=== PATIENT | male | born 1980 | race Hispanic/Latino ===

== ENCOUNTER 2024-08-03 18:59 | Inpatient (IN) | payer SELFPAY ==
[~2024-08-03 18:59] MED LIST: Iopamidol-370 76% 500 ML MDV (1 ML CHARGE) ONE
[2024-08-03] MEDS ORDERED: Ondansetron ODT 4 MG TAB ONE (20:19)
[2024-08-03 20:55] LABS: #Basophils 0.03 10x3/uL (0.0-0.2); #Eosinophils Less than 0.03 10x3/uL (0.0-0.7); %Basophils 0.5 % (0.0-1.0); %Lymphocytes 8.3 % (21.0-51.0); %Monocytes 5.6 % (0.0-10.0); %Neutrophils 85.1 % (42.0-75.0); Hematocrit 46.8 % (42.0-52.0); Hemoglobin 16.8 g/dL (14.0-18.0); Mean Corpuscular HGB CONC 35.9 g/dL (32.0-36.0); Mean Corpuscular Hemoglobin 33.9 pg (27.0-31.0); Mean Corpuscular Volume 94.5 fL (78.0-98.0); Mean Platelet Volume 12.3 fL (7.4-10.4); Platelet Count 87 10x3/uL (130-400); RBC Distribution Width 12.3 % (11.5-14.5); Red Blood Cell (RBC) Count 4.95 mill/uL (4.70-6.10)
[2024-08-03 21:02] LABS: Bacteria/HPF None Seen HPF (None Seen); Bilirubin Negative (Negative); Blood, Urine Trace (Negative); CAUTI Indications for Culture Dysuria,urgency,freq; Clarity Clear (Clear); Glucose, Urine (Dipstick) Normal (Negative); Ketone, Urine 10 mg/dL (Negative); Leukocyte Negative Leu/uL (Negative); Nitrite Negative (Negative); Protein, Urine (Dipstick) 20 mg/dL (Neg-Trace); RBC/HPF 0-3 HPF (0-3); Specific Gravity, Urine 1.025 (1.002-1.036); Squamous Epithelial 0-3 HPF (0-3); WBC/HPF 0-3 HPF (0-3)
[2024-08-03 21:03] LABS: Urine Culture Reflex No No
[2024-08-03 21:11] LABS: Troponin I Less than 0.010 ng/mL (< 0.028)
[2024-08-03 21:12] LABS: Glucose 138 mg/dL (70-105)
[2024-08-03 21:13] LABS: ALT (SGPT) 120 U/L (8-55); AST (SGOT) 117 U/L (5-34); Albumin 4.4 g/dL (3.5-5.0); Alkaline Phosphatase 146 U/L (40-110); Anion Gap 18 mmol/L (10-20); BUN (Urea Nitrogen) 8 mg/dL (8.9-20.6); Calc. Creatinine Clearance 0 mL/min (70-130); Calcium 9.3 mg/dL (7.8-10.44); Carbon Dioxide 21 mmol/L (22-29); Chloride 104 mmol/L (98-107); Estimated GFR 117; Globulin 3.5 g/dL (2.4-3.5); Potassium 3.8 mmol/L (3.5-5.1); Protein, Total 7.9 g/dL (6.0-8.3); Sodium 139 mmol/L (136-145)
[2024-08-03 21:17] LABS: Lipase 1547 U/L (8-78)
[2024-08-03 21:19] LABS: Anisocytosis SLIGHT = 6-15 cells HPF (0-5); Platelet Adequacy Comment Platelets Decreased; Poikilocytosis SLIGHT = 6-15 cells HPF (0-5); Polychromasia SLIGHT = 2-3 cells HPF (0-2)
[2024-08-03] MEDS ORDERED: Morphine 4 MG/ML VIAL ONE (21:54)
[2024-08-03] MEDS ORDERED: Ondansetron ODT 4 MG TAB PO PRN ×2 (23:10→23:11)
[2024-08-03] MEDS ORDERED: Lorazepam 2 MG/ML VIAL IM PRN (23:10)
[2024-08-03] MEDS ORDERED: Acetaminophen 650 MG Suppository PR PRN (23:11)
[2024-08-03] MEDS ORDERED: Calcium Carbonate 500 MG ChewTAB PO PRN (23:11)
[2024-08-03] MEDS ORDERED: Ondansetron PF 4 MG/2 ML Vial IVP PRN (23:11)
[2024-08-03] MEDS ORDERED: Electrolyte Replacement Protocol 1 EACH FS SCH (23:15)
[2024-08-04] MEDS: Thiamine HCl 200 MG/2 ML VIAL SLOW IVP SCH (01:49)
[2024-08-04] MEDS: Acetaminophen 325 MG TAB PO SCH (01:49)
[2024-08-04] MEDS: Folic Acid 1 MG TAB PO SCH ×2 (01:50→20:23)
[2024-08-04] MEDS: Multivit, Therapeutic 1 TAB PO SCH ×2 (01:50→20:25)
[2024-08-04] MEDS: Lactated Ringer's 1,000 ML IV SCH (01:53)
[2024-08-04] MEDS: Morphine 2 MG/ML VIAL SLOW IVP PRN (01:53)
[2024-08-04 04:29] VITALS: BMI 26.4
[2024-08-04 05:05] LABS: #Basophils Less than 0.03 10x3/uL (0.0-0.2); #Eosinophils Less than 0.03 10x3/uL (0.0-0.7); %Basophils 0.2 % (0.0-1.0); %Lymphocytes 14.5 % (21.0-51.0); %Monocytes 8.2 % (0.0-10.0); %Neutrophils 76.9 % (42.0-75.0); Hematocrit 41.7 % (42.0-52.0); Hemoglobin 14.8 g/dL (14.0-18.0); Mean Corpuscular HGB CONC 35.5 g/dL (32.0-36.0); Mean Corpuscular Hemoglobin 33.7 pg (27.0-31.0); Platelet Count 63 10x3/uL (130-400); RBC Distribution Width 12.4 % (11.5-14.5); Red Blood Cell (RBC) Count 4.39 mill/uL (4.70-6.10)
[2024-08-04 05:14] LABS: ALT (SGPT) 88 U/L (8-55); AST (SGOT) 76 U/L (5-34); Albumin 3.7 g/dL (3.5-5.0); Alkaline Phosphatase 100 U/L (40-110); Anion Gap 13 mmol/L (10-20); BUN (Urea Nitrogen) 10 mg/dL (8.9-20.6); Bilirubin, Total 2.4 mg/dL (0.2-1.2); Calc. Creatinine Clearance 165 mL/min (70-130); Calcium 8.1 mg/dL (7.8-10.44); Carbon Dioxide 23 mmol/L (22-29); Chloride 105 mmol/L (98-107); Estimated GFR 116; Globulin 2.6 g/dL (2.4-3.5); Glucose 130 mg/dL (70-105); Potassium 4.1 mmol/L (3.5-5.1); Protein, Total 6.3 g/dL (6.0-8.3); Sodium 137 mmol/L (136-145)
[2024-08-04] MEDS: Famotidine 20 MG TAB PO SCH (09:25)
[2024-08-04] MEDS: Lorazepam 1 MG TAB PO PRN (09:28)
[2024-08-04] MEDS: Famotidine/PF 20 mg/2ml Vial SLOW IVP SCH (09:35)
[2024-08-04] MEDS: hydrALAZINE 20 MG/ML VIAL SLOW IVP PRN (16:29)
[2024-08-04] MEDS: ALPRAZolam 0.25 MG TAB PO PRN (16:29)
[2024-08-04] MEDS: Amlodipine 5 MG TAB PO SCH (20:24)
[2024-08-04] MEDS ORDERED: Lorazepam 1 MG TAB PO PRN (23:10)
[2024-08-05 05:45] LABS: #Basophils Less than 0.03 10x3/uL (0.0-0.2); #Eosinophils Less than 0.03 10x3/uL (0.0-0.7); %Basophils 0.3 % (0.0-1.0); %Eosinophils 0.1 % (0.0-10.0); %Monocytes 8.9 % (0.0-10.0); %Neutrophils 76.4 % (42.0-75.0); Hemoglobin 16.2 g/dL (14.0-18.0); Mean Corpuscular Volume 94.5 fL (78.0-98.0); Platelet Count 63 10x3/uL (130-400); RBC Distribution Width 12.2 % (11.5-14.5); Red Blood Cell (RBC) Count 4.76 mill/uL (4.70-6.10)
[2024-08-05 06:54] LABS: Lipase 515 U/L (8-78)
[2024-08-05 06:55] LABS: ALT (SGPT) 72 U/L (8-55); AST (SGOT) 60 U/L (5-34); Albumin 3.6 g/dL (3.5-5.0); Alkaline Phosphatase 105 U/L (40-110); Anion Gap 14 mmol/L (10-20); BUN (Urea Nitrogen) 8 mg/dL (8.9-20.6); Bilirubin, Total 3.8 mg/dL (0.2-1.2); Calc. Creatinine Clearance 180 mL/min (70-130); Calcium 8.5 mg/dL (7.8-10.44); Carbon Dioxide 20 mmol/L (22-29); Chloride 105 mmol/L (98-107); Estimated GFR 119; Glucose 93 mg/dL (70-105); Potassium 3.2 mmol/L (3.5-5.1); Protein, Total 6.6 g/dL (6.0-8.3); Sodium 136 mmol/L (136-145)
[2024-08-05] MEDS: Potassium Chloride 20 MEQ TAB PO SCH (08:46)
[2024-08-05] MEDS: Amlodipine 5 MG TAB PO SCH ×2 (08:46→15:40)
[2024-08-05 10:46] VITALS: TEMP 97.3
[2024-08-05 15:51] VITALS: BP 148/110
[2024-08-05] MEDS ORDERED: Lorazepam 1 MG TAB PO PRN (23:10)
[2024-08-06] MEDS ORDERED: Thiamine 100 MG TAB PO SCH (21:00)
[2024-08-06] MEDS ORDERED: Lorazepam 0.5 MG TAB PO PRN (23:10)
== END 2024-08-05 16:27 | disposition home or self-care (01) | DRG 440 ==
LOC: ERS 18:59 → SURG B 23:34
PROVIDERS: ADMIT Student in an Organized Health Care Education/Training Program; ATTEND Internal Medicine
DX: K85.20 Alcohol induced acute pancreatitis without necrosis or infection (principal); F10.10 Alcohol abuse, uncomplicated; E87.6 Hypokalemia; K74.60 Unspecified cirrhosis of liver; E11.9 Type 2 diabetes mellitus without complications; I10 Essential (primary) hypertension; Z88.0 Allergy status to penicillin; Z71.41 Alcohol abuse counseling and surveillance of alcoholic; D69.6 Thrombocytopenia, unspecified
CPT/HCPCS: 36415; 71045; 74177; 76705; 80053; 81001; 83690; 84484; 85025; 93005; J0360; J2272; J3411; J7120; Q0162; Q9967

== ENCOUNTER 2025-07-18 11:22 | Inpatient (IN) | payer MEDICAID, SELFPAY ==
[2025-07-18] MEDS ORDERED: Ondansetron PF 4 MG/2 ML Vial ONE (11:54)
[2025-07-18] MEDS ORDERED: Acetaminophen 500 MG TAB ONE (11:54)
[2025-07-18] MEDS ORDERED: Cefepime 2 GM VIAL ONE (11:55)
[2025-07-18] MEDS ORDERED: Vancomycin 1 GM/200 ML (FROZEN) BAG ONE ×2 (11:55→13:28)
[2025-07-18 12:09] LABS: Hematocrit 39.7 % (42.0-52.0); Hemoglobin 13.8 g/dL (14.0-18.0); Mean Corpuscular Hemoglobin 36.3 pg (27.0-31.0); Mean Corpuscular Volume 104.5 fL (78.0-98.0); Platelet Count 31 10x3/uL (130-400); Red Blood Cell (RBC) Count 3.80 mill/uL (4.70-6.10); White Blood Cell (WBC) Count 3.32 10x3/uL (4.8-10.8)
[2025-07-18 12:15] LABS: ALT (SGPT) 60 U/L (Less than 45); AST (SGOT) 154 U/L (11-34); Albumin 2.0 g/dL (3.1-4.5); Alkaline Phosphatase 120 U/L (40-110); Anion Gap 20 mmol/L (10-20); BUN (Urea Nitrogen) 10 mg/dL (8.9-20.6); Bilirubin, Total 23.5 mg/dL (0.3-1.2); Calc. Creatinine Clearance 0 mL/min (70-130); Calcium 8.5 mg/dL (7.8-10.44); Carbon Dioxide 18 mmol/L (22-29); Chloride 96 mmol/L (98-107); Globulin 4.9 g/dL (2.4-3.5); Glucose 97 mg/dL (70-105); Lipase 45 U/L (8-78); Magnesium 1.7 mg/dL (1.6-2.6); Potassium 3.5 mmol/L (3.5-5.1); Sodium 130 mmol/L (136-145)
[2025-07-18 12:17] LABS: INR-International Normal Ratio 2.7; PTT 47.2 sec (22.9-36.1); Prothrombin Time 28.9 sec (12.0-14.7)
[2025-07-18 12:33] LABS: Anisocytosis SLIGHT = 6-15 cells HPF (0-5); Burr Cells MODERATE= 6-15 cells HPF (0-1); Giant Platelets 0.9 % (0-5); Macrocytosis SLIGHT = 6-15 cells HPF (0-5); Platelet Adequacy Comment Significant Decrease; Poikilocytosis MODERATE=16-30 cells HPF (0-5); Polychromasia SLIGHT = 2-3 cells HPF (0-2); Reflex for Review?? YES; Smudge Cells 2.8 %; Toxic Granulation SLIGHT
[2025-07-18 14:16] LABS: RBC Count-Automated (BF) 3331 /cu.mm; WBC/Nucleated-Auto (BF) 6257 /cu.mm
[2025-07-18 14:58] LABS: BF Segmented Neutrophils 84 %; Cell Count Non Hematic 4 %
[2025-07-18] MEDS ORDERED: Ondansetron PF 4 MG/2 ML Vial IVP PRN (15:35)
[2025-07-18] MEDS ORDERED: Glucagon 1 MG/ML KIT IM PRN (15:39)
[2025-07-18] MEDS ORDERED: Dextrose 50% Abboject 50 ML SYRINGE SLOW IVP PRN (15:39)
[2025-07-18] MEDS ORDERED: PHOS-NAK 1 PKT PACK PO PRN ×2 (15:45→19:00)
[2025-07-18] MEDS ORDERED: Electrolyte Replacement Protocol 1 EACH FS SCH (15:45)
[2025-07-18] MEDS ORDERED: Vancomycin 1 GM in Premix 1 BAG IVPB SCH (16:00)
[2025-07-18 17:28] LABS: Acetaminophen Less than 10 mcg/mL (Less than 10); Bilirubin, Direct 11.4 mg/dL (0.1-0.3); Magnesium 1.6 mg/dL (1.6-2.6)
[2025-07-18 17:33] LABS: INR-International Normal Ratio 3.9; Prothrombin Time 38.4 sec (12.0-14.7)
[2025-07-18 17:34] LABS: PTT 59.6 sec (22.9-36.1)
[2025-07-18 18:13] VITALS: BMI 24.8
[2025-07-18] MEDS ORDERED: Pharmacy to Dose: VANC IVPB PRN (18:33)
[2025-07-18] MEDS ORDERED: Potassium Chloride 20 MEQ in Premix 1 BAG IVPB PRN (19:00)
[2025-07-18] MEDS ORDERED: Magnesium 2 GM/50 ML(in water) 2 GM in Premix 1 BAG IVPB PRN (19:00)
[2025-07-18] MEDS: Magnesium 2 GM/50 ML(in water) 2 GM in Premix 1 BAG IVPB PRN (19:39)
[2025-07-18] MEDS: Electrolyte Replacement Protocol 1 EACH FS ONE (20:30)
[2025-07-18] MEDS: Albumin 25% 25 GM (100 mL) BOT IVPB SCH (20:31)
[2025-07-18] MEDS: Folic Acid 1 MG TAB PO SCH (20:32)
[2025-07-18] MEDS: Multivit, Therapeutic 1 TAB PO SCH (20:33)
[2025-07-18 20:38] LABS: Hematocrit 29.8 % (42.0-52.0); Hemoglobin 10.3 g/dL (14.0-18.0); Mean Corpuscular Hemoglobin 36.1 pg (27.0-31.0); Mean Corpuscular Volume 104.6 fL (78.0-98.0); Platelet Count 15 10x3/uL (130-400); Red Blood Cell (RBC) Count 2.85 mill/uL (4.70-6.10); White Blood Cell (WBC) Count 3.25 10x3/uL (4.8-10.8)
[2025-07-18] MEDS ORDERED: Heparin 5,000 UNITS/ML VIAL SC SCH (21:00)
[2025-07-18] MEDS: VANCOMYCIN 1.75 GM/350 ML Premix BAG IVPB SCH (21:04)
[2025-07-19 00:38] LABS: #Basophils Less than 0.03 10x3/uL (0.0-0.2); #Eosinophils Less than 0.03 10x3/uL (0.0-0.7); #Monocytes 0.29 10x3/uL (0.11-0.59); #Neutrophils 2.90 10x3/uL (1.40-6.50); %Basophils 0.3 % (0.0-1.0); %Eosinophils 0.3 % (0.0-10.0); %Lymphocytes 14.6 % (21.0-51.0); %Monocytes 7.7 % (0.0-10.0); %Neutrophils 76.8 % (42.0-75.0); Hematocrit 28.9 % (42.0-52.0); Hemoglobin 9.7 g/dL (14.0-18.0); Mean Corpuscular Hemoglobin 36.5 pg (27.0-31.0); Mean Corpuscular Volume 108.6 fL (78.0-98.0); Platelet Count 14 10x3/uL (130-400); Red Blood Cell (RBC) Count 2.66 mill/uL (4.70-6.10); White Blood Cell (WBC) Count 3.77 10x3/uL (4.8-10.8)
[2025-07-19 01:06] LABS: Anisocytosis SLIGHT = 6-15 cells HPF (0-5); Macrocytosis SLIGHT = 6-15 cells HPF (0-5); Platelet Adequacy Comment Platelets Decreased; Polychromasia SLIGHT = 2-3 cells HPF (0-2); Target Cells SLIGHT = 2-5 cells HPF (0-1)
[2025-07-19 06:55] LABS: Hematocrit 32.6 % (42.0-52.0); Hemoglobin 11.0 g/dL (14.0-18.0); Mean Corpuscular Hemoglobin 35.9 pg (27.0-31.0); Mean Corpuscular Volume 106.5 fL (78.0-98.0); Platelet Count 28 10x3/uL (130-400); Red Blood Cell (RBC) Count 3.06 mill/uL (4.70-6.10); White Blood Cell (WBC) Count 3.99 10x3/uL (4.8-10.8)
[2025-07-19 07:04] LABS: INR-International Normal Ratio 3.4; PTT 56.6 sec (22.9-36.1); Prothrombin Time 34.7 sec (12.0-14.7)
[2025-07-19 07:05] LABS: Vancomycin, Random 22.3 ug/mL (See Comment)
[2025-07-19 07:06] LABS: ALT (SGPT) 44 U/L (Less than 45); AST (SGOT) 89 U/L (11-34); Albumin 2.6 g/dL (3.1-4.5); Alkaline Phosphatase 50 U/L (40-110); Anion Gap 12 mmol/L (10-20); BUN (Urea Nitrogen) 12 mg/dL (8.9-20.6); Bilirubin, Total 20.0 mg/dL (0.3-1.2); Calc. Creatinine Clearance 204 mL/min (70-130); Calcium 8.4 mg/dL (7.8-10.44); Carbon Dioxide 23 mmol/L (22-29); Chloride 101 mmol/L (98-107); Globulin 3.1 g/dL (2.4-3.5); Glucose 91 mg/dL (70-105); Magnesium 2.4 mg/dL (1.6-2.6); Potassium 3.2 mmol/L (3.5-5.1); Sodium 133 mmol/L (136-145)
[2025-07-19 07:49] LABS: Burr Cells MARKED = >16 cells HPF (0-1); Macrocytosis SLIGHT = 6-15 cells HPF (0-5); Platelet Adequacy Comment Significant Decrease; Poikilocytosis MARKED = >30 cells HPF (0-5); Polychromasia SLIGHT = 2-3 cells HPF (0-2); Smudge Cells 10.7 %; Target Cells MODERATE= 6-15 cells HPF (0-1)
[2025-07-19] MEDS: Pantoprazole 40 MG VIAL IVP SCH (08:59)
[2025-07-19] MEDS: PNEUMOC 20-VAL CONJ-DIP CRM/PF 0.5 ML SYRINGE IM ONE (09:00)
[2025-07-19] MEDS ORDERED: Folic Acid 1 MG TAB PO SCH (09:00)
[2025-07-19] MEDS: FLU (Fluarix Triv) 25-26 (6MOS UP)/PF 45 MCG/0.5 ML Syringe IM ONE (09:00)
[2025-07-19] MEDS ORDERED: Multivit, Therapeutic 1 TAB PO SCH (09:00)
[2025-07-19 09:50] LABS: Osmolality, Serum 278 mOsm/kg (275-295)
[2025-07-19 10:00] LABS: Cocaine Metabolite Screen Negative (Negative); THC/Cannabinoid Screen Negative (Negative); Tricyclic Screen Negative (Negative)
[2025-07-19 10:41] LABS: Osmolality, Urine 440 mOsm/kg (50-1200)
[2025-07-19 10:55] LABS: Potassium, Urine 45.9 mmol/L; Sodium, Urine Less than 20 mmol/L (Not Available)
[2025-07-19 16:37] LABS: Potassium 3.5 mmol/L (3.5-5.1)
[2025-07-19] MEDS: Melatonin 3 MG TAB PO PRN (22:30)
[2025-07-19] MEDS: Vancomycin HCl 750 MG in Sodium Chloride 0.9% 250 ML 250 ML IVPB SCH (23:00)
[2025-07-20 00:36] LABS: Campy jejuni + coli by PCR Negative (Negative); STEC Shiga Toxin 1+2 Negative (Negative); Salmonella spp. by PCR Negative (Negative); Shigella spp + EIEC by PCR Negative (Negative)
[2025-07-20 04:00] LABS: Hematocrit 28.9 % (42.0-52.0); Hemoglobin 10.3 g/dL (14.0-18.0); Mean Corpuscular Hemoglobin 36.4 pg (27.0-31.0); Mean Corpuscular Volume 102.1 fL (78.0-98.0); Platelet Count 24 10x3/uL (130-400); Red Blood Cell (RBC) Count 2.83 mill/uL (4.70-6.10); White Blood Cell (WBC) Count 3.78 10x3/uL (4.8-10.8)
[2025-07-20 04:04] LABS: INR-International Normal Ratio 3.3; Prothrombin Time 34.1 sec (12.0-14.7)
[2025-07-20 04:08] LABS: Vancomycin, Random 17.1 ug/mL (See Comment)
[2025-07-20 04:16] LABS: ALT (SGPT) 44 U/L (Less than 45); AST (SGOT) 96 U/L (11-34); Albumin 2.6 g/dL (3.1-4.5); Alkaline Phosphatase 56 U/L (40-110); Anion Gap 10 mmol/L (10-20); BUN (Urea Nitrogen) 13 mg/dL (8.9-20.6); Bilirubin, Total 21.3 mg/dL (0.3-1.2); Calc. Creatinine Clearance 207 mL/min (70-130); Calcium 8.1 mg/dL (7.8-10.44); Carbon Dioxide 23 mmol/L (22-29); Chloride 104 mmol/L (98-107); Globulin 2.3 g/dL (2.4-3.5); Glucose 80 mg/dL (70-105); Potassium 3.2 mmol/L (3.5-5.1); Sodium 134 mmol/L (136-145)
[2025-07-20 04:39] LABS: Burr Cells SLIGHT = 2-5 cells HPF (0-1); Platelet Adequacy Comment Platelets Decreased; Smudge Cells 7.2 %; Target Cells SLIGHT = 2-5 cells HPF (0-1)
[2025-07-20 12:33] LABS: Potassium 3.6 mmol/L (3.5-5.1)
[2025-07-21 05:48] LABS: ALT (SGPT) 52 U/L (Less than 45); AST (SGOT) 111 U/L (11-34); Albumin 2.2 g/dL (3.1-4.5); Alkaline Phosphatase 78 U/L (40-110); Anion Gap 9 mmol/L (10-20); BUN (Urea Nitrogen) 16 mg/dL (8.9-20.6); Bilirubin, Total 22.9 mg/dL (0.3-1.2); Calc. Creatinine Clearance 268 mL/min (70-130); Calcium 7.9 mg/dL (7.8-10.44); Carbon Dioxide 21 mmol/L (22-29); Chloride 109 mmol/L (98-107); Globulin 2.3 g/dL (2.4-3.5); Glucose 78 mg/dL (70-105); Magnesium 2.2 mg/dL (1.6-2.6); Potassium 3.4 mmol/L (3.5-5.1); Sodium 136 mmol/L (136-145)
[2025-07-21 06:02] LABS: Hematocrit 29.6 % (42.0-52.0); Hemoglobin 10.3 g/dL (14.0-18.0); Mean Corpuscular Hemoglobin 36.4 pg (27.0-31.0); Mean Corpuscular Volume 104.6 fL (78.0-98.0); Platelet Count 26 10x3/uL (130-400); Red Blood Cell (RBC) Count 2.83 mill/uL (4.70-6.10); White Blood Cell (WBC) Count 3.28 10x3/uL (4.8-10.8)
[2025-07-21] MEDS: Potassium Chloride 20 MEQ in Premix 1 BAG IVPB PRN (06:55)
[2025-07-21 07:13] LABS: Anisocytosis SLIGHT = 6-15 cells HPF (0-5); Macrocytosis SLIGHT = 6-15 cells HPF (0-5); Nucleated RBC (Manual Ct) 1 % (0); Platelet Adequacy Comment Platelets Decreased; Smudge Cells 22.6 %
[2025-07-21] MEDS: Potassium Phosphate 22 MMOL in Sodium Chloride 0.9% 250 ML 250 ML IVPB SCH (09:31)
[2025-07-21] MEDS: PHOS-NAK 1 PKT PACK PO SCH (10:57)
[2025-07-21] MEDS: Thiamine 100 MG TAB PO SCH (11:02)
[2025-07-21 14:54] LABS: Potassium 3.9 mmol/L (3.5-5.1)
[2025-07-21] MEDS ORDERED: Lactulose 20 GM (30 mL) UDCUP PR SCH ×2 (16:14→21:00)
[2025-07-21] MEDS ORDERED: Lactulose 10 GM/15 ML Oral Solution PR SCH ×3 (16:30→21:00)
[2025-07-21] MEDS: cloNIDine 0.2mg/24 Hour PATCH TD SCH (16:56)
[2025-07-21] MEDS: Lactulose 20 GM (30 mL) UDCUP PO SCH ×2 (17:05→21:08)
[2025-07-21] MEDS: Lactulose 20 GM (30 mL) UDCUP PER TUBE SCH (17:40)
[2025-07-21] MEDS ORDERED: Lactulose 20 GM (30 mL) UDCUP PER TUBE SCH (21:00)
[2025-07-22 07:03] LABS: Hematocrit 31.4 % (42.0-52.0); Hemoglobin 10.9 g/dL (14.0-18.0); Mean Corpuscular Hemoglobin 36.3 pg (27.0-31.0); Mean Corpuscular Volume 104.7 fL (78.0-98.0); Platelet Count 30 10x3/uL (130-400); Red Blood Cell (RBC) Count 3.00 mill/uL (4.70-6.10); White Blood Cell (WBC) Count 2.98 10x3/uL (4.8-10.8)
[2025-07-22 07:15] LABS: ALT (SGPT) 69 U/L (Less than 45); AST (SGOT) 140 U/L (11-34); Albumin 2.3 g/dL (3.1-4.5); Alkaline Phosphatase 89 U/L (40-110); Anion Gap 11 mmol/L (10-20); BUN (Urea Nitrogen) 17 mg/dL (8.9-20.6); Bilirubin, Total 24.4 mg/dL (0.3-1.2); Calc. Creatinine Clearance 300 mL/min (70-130); Calcium 8.2 mg/dL (7.8-10.44); Carbon Dioxide 21 mmol/L (22-29); Chloride 112 mmol/L (98-107); Globulin 2.7 g/dL (2.4-3.5); Glucose 81 mg/dL (70-105); Magnesium 2.1 mg/dL (1.6-2.6); Potassium 3.9 mmol/L (3.5-5.1); Sodium 140 mmol/L (136-145)
[2025-07-22 07:32] LABS: Anisocytosis MARKED = >30 cells HPF (0-5); Burr Cells SLIGHT = 2-5 cells HPF (0-1); Macrocytosis MARKED = >30 cells HPF (0-5); Platelet Adequacy Comment Significant Decrease; Polychromasia SLIGHT = 2-3 cells HPF (0-2); Target Cells SLIGHT = 2-5 cells HPF (0-1)
[2025-07-22 08:07] LABS: Plasma Cells 0 % (0-0)
[2025-07-23 04:36] LABS: Hematocrit 32.4 % (42.0-52.0); Hemoglobin 11.1 g/dL (14.0-18.0); Mean Corpuscular Hemoglobin 36.3 pg (27.0-31.0); Mean Corpuscular Volume 105.9 fL (78.0-98.0); Platelet Count 33 10x3/uL (130-400); Red Blood Cell (RBC) Count 3.06 mill/uL (4.70-6.10); White Blood Cell (WBC) Count 2.79 10x3/uL (4.8-10.8)
[2025-07-23 04:49] LABS: INR-International Normal Ratio 2.8; Prothrombin Time 29.8 sec (12.0-14.7)
[2025-07-23 04:58] LABS: ALT (SGPT) 73 U/L (Less than 45); AST (SGOT) 135 U/L (11-34); Albumin 2.3 g/dL (3.1-4.5); Alkaline Phosphatase 86 U/L (40-110); Anion Gap 15 mmol/L (10-20); BUN (Urea Nitrogen) 16 mg/dL (8.9-20.6); Calc. Creatinine Clearance 342 mL/min (70-130); Calcium 8.2 mg/dL (7.8-10.44); Carbon Dioxide 19 mmol/L (22-29); Chloride 115 mmol/L (98-107); Globulin 2.8 g/dL (2.4-3.5); Glucose 94 mg/dL (70-105); Potassium 3.6 mmol/L (3.5-5.1); Sodium 145 mmol/L (136-145)
[2025-07-23 05:09] LABS: Bilirubin, Total 24.3 mg/dL (0.3-1.2)
[2025-07-23 05:59] LABS: Anisocytosis SLIGHT = 6-15 cells HPF (0-5); Macrocytosis SLIGHT = 6-15 cells HPF (0-5); Platelet Adequacy Comment Significant Decrease; Polychromasia SLIGHT = 2-3 cells HPF (0-2); Smudge Cells 14.1 %
[2025-07-23] MEDS: Furosemide 40 MG (4 mL) VIAL SLOW IVP SCH (17:10)
[2025-07-24 03:55] LABS: #Basophils 0.04 10x3/uL (0.0-0.2); #Eosinophils 0.06 10x3/uL (0.0-0.7); #Monocytes 0.50 10x3/uL (0.11-0.59); #Neutrophils 2.25 10x3/uL (1.40-6.50); %Basophils 1.1 % (0.0-1.0); %Eosinophils 1.7 % (0.0-10.0); %Lymphocytes 16.7 % (21.0-51.0); %Monocytes 14.2 % (0.0-10.0); %Neutrophils 63.8 % (42.0-75.0); Hematocrit 32.8 % (42.0-52.0); Hemoglobin 11.3 g/dL (14.0-18.0); Mean Corpuscular Hemoglobin 36.3 pg (27.0-31.0); Mean Corpuscular Volume 105.5 fL (78.0-98.0); Platelet Count 36 10x3/uL (130-400); Red Blood Cell (RBC) Count 3.11 mill/uL (4.70-6.10); White Blood Cell (WBC) Count 3.53 10x3/uL (4.8-10.8)
[2025-07-24 04:33] LABS: ALT (SGPT) 78 U/L (Less than 45); AST (SGOT) 141 U/L (11-34); Albumin 2.3 g/dL (3.1-4.5); Alkaline Phosphatase 93 U/L (40-110); Anion Gap 12 mmol/L (10-20); BUN (Urea Nitrogen) 11 mg/dL (8.9-20.6); Calc. Creatinine Clearance 291 mL/min (70-130); Calcium 8.3 mg/dL (7.8-10.44); Carbon Dioxide 21 mmol/L (22-29); Chloride 115 mmol/L (98-107); Globulin 3.2 g/dL (2.4-3.5); Glucose 109 mg/dL (70-105); Potassium 3.3 mmol/L (3.5-5.1); Sodium 145 mmol/L (136-145)
[2025-07-24 04:36] LABS: Bilirubin, Total 25.8 mg/dL (0.3-1.2)
[2025-07-24] MEDS: Furosemide 40 MG (4 mL) VIAL SLOW IVP SCH (06:35)
[2025-07-24 16:51] LABS: Potassium 3.3 mmol/L (3.5-5.1)
[2025-07-24 22:12] LABS: Potassium 3.8 mmol/L (3.5-5.1)
[2025-07-25 04:27] LABS: #Basophils 0.03 10x3/uL (0.0-0.2); #Eosinophils 0.03 10x3/uL (0.0-0.7); #Monocytes 0.46 10x3/uL (0.11-0.59); #Neutrophils 3.45 10x3/uL (1.40-6.50); %Basophils 0.6 % (0.0-1.0); %Eosinophils 0.6 % (0.0-10.0); %Lymphocytes 13.1 % (21.0-51.0); %Monocytes 9.9 % (0.0-10.0); %Neutrophils 74.3 % (42.0-75.0); Hematocrit 34.2 % (42.0-52.0); Hemoglobin 11.6 g/dL (14.0-18.0); Mean Corpuscular Hemoglobin 36.0 pg (27.0-31.0); Mean Corpuscular Volume 106.2 fL (78.0-98.0); Platelet Count 41 10x3/uL (130-400); Red Blood Cell (RBC) Count 3.22 mill/uL (4.70-6.10); White Blood Cell (WBC) Count 4.65 10x3/uL (4.8-10.8)
[2025-07-25 04:33] LABS: Bilirubin, Total 27.0 mg/dL (0.3-1.2)
[2025-07-25 04:41] LABS: ALT (SGPT) 84 U/L (Less than 45); AST (SGOT) 136 U/L (11-34); Albumin 2.4 g/dL (3.1-4.5); Alkaline Phosphatase 97 U/L (40-110); Anion Gap 13 mmol/L (10-20); BUN (Urea Nitrogen) 9 mg/dL (8.9-20.6); Calc. Creatinine Clearance 322 mL/min (70-130); Calcium 8.6 mg/dL (7.8-10.44); Carbon Dioxide 23 mmol/L (22-29); Chloride 113 mmol/L (98-107); Globulin 3.7 g/dL (2.4-3.5); Glucose 102 mg/dL (70-105); Potassium 3.4 mmol/L (3.5-5.1); Sodium 146 mmol/L (136-145)
[2025-07-25] MEDS ORDERED: Sodium Bicarbonate 2.5 MEQ/5 ML SDV ONE (10:03)
[2025-07-25] MEDS ORDERED: Lidocaine 1% w/Epinephrine 1:100K 20 ML VIAL ONE (10:03)
[2025-07-25] MEDS ORDERED: Lidocaine 1% PF 5 ML VIAL ONE (10:03)
[2025-07-25 10:50] LABS: Potassium 3.2 mmol/L (3.5-5.1)
[2025-07-25 16:22] VITALS: BMI 25.2
[2025-07-25 16:55] LABS: RBC Count-Automated (BF) 198 /cu.mm; WBC/Nucleated-Auto (BF) 180 /cu.mm
[2025-07-25 17:28] LABS: BF Segmented Neutrophils 19 %; Cell Count Non Hematic 25 %
[2025-07-25 19:03] LABS: Potassium 3.3 mmol/L (3.5-5.1)
[2025-07-25 23:57] LABS: Potassium 3.3 mmol/L (3.5-5.1)
[2025-07-26 05:22] LABS: #Basophils 0.03 10x3/uL (0.0-0.2); #Eosinophils 0.04 10x3/uL (0.0-0.7); #Monocytes 0.47 10x3/uL (0.11-0.59); #Neutrophils 3.77 10x3/uL (1.40-6.50); %Basophils 0.6 % (0.0-1.0); %Eosinophils 0.8 % (0.0-10.0); %Lymphocytes 14.6 % (21.0-51.0); %Monocytes 9.2 % (0.0-10.0); %Neutrophils 73.6 % (42.0-75.0); Hematocrit 33.6 % (42.0-52.0); Hemoglobin 11.8 g/dL (14.0-18.0); Mean Corpuscular Hemoglobin 36.9 pg (27.0-31.0); Mean Corpuscular Volume 105.0 fL (78.0-98.0); Platelet Count 39 10x3/uL (130-400); Red Blood Cell (RBC) Count 3.20 mill/uL (4.70-6.10); White Blood Cell (WBC) Count 5.12 10x3/uL (4.8-10.8)
[2025-07-26 05:44] LABS: Bilirubin, Total 26.7 mg/dL (0.3-1.2)
[2025-07-26 05:45] LABS: ALT (SGPT) 82 U/L (Less than 45); AST (SGOT) 135 U/L (11-34); Albumin 2.4 g/dL (3.1-4.5); Alkaline Phosphatase 101 U/L (40-110); Anion Gap 13 mmol/L (10-20); BUN (Urea Nitrogen) 10 mg/dL (8.9-20.6); Calc. Creatinine Clearance 256 mL/min (70-130); Calcium 8.6 mg/dL (7.8-10.44); Carbon Dioxide 24 mmol/L (22-29); Chloride 114 mmol/L (98-107); Globulin 3.7 g/dL (2.4-3.5); Glucose 116 mg/dL (70-105); Potassium 3.3 mmol/L (3.5-5.1); Sodium 148 mmol/L (136-145)
[2025-07-26 14:25] LABS: Potassium 3.5 mmol/L (3.5-5.1)
[2025-07-26] MEDS: Albumin 25% 25 GM (100 mL) BOT IVPB SCH (17:44)
[2025-07-26] MEDS: Lactulose 20 GM (30 mL) UDCUP PO SCH (17:44)
[2025-07-26] MEDS: Ciprofloxacin 500 MG TAB PO SCH (20:01)
[2025-07-27 04:09] LABS: INR-International Normal Ratio 2.9; Prothrombin Time 30.4 sec (12.0-14.7)
[2025-07-27 04:10] LABS: PTT 55.0 sec (22.9-36.1)
[2025-07-27 04:16] LABS: ALT (SGPT) 77 U/L (Less than 45); AST (SGOT) 136 U/L (11-34); Albumin 2.7 g/dL (3.1-4.5); Alkaline Phosphatase 117 U/L (40-110); Bilirubin, Total 24.5 mg/dL (0.3-1.2)
[2025-07-27 04:28] LABS: Bilirubin, Direct 16.8 mg/dL (0.1-0.3)
[2025-07-27 04:38] LABS: Anion Gap 13 mmol/L (10-20); BUN (Urea Nitrogen) 11 mg/dL (8.9-20.6); Calc. Creatinine Clearance 245 mL/min (70-130); Calcium 8.4 mg/dL (7.8-10.44); Carbon Dioxide 24 mmol/L (22-29); Chloride 109 mmol/L (98-107); Glucose 91 mg/dL (70-105); Potassium 2.9 mmol/L (3.5-5.1); Sodium 143 mmol/L (136-145)
[2025-07-27] MEDS: Furosemide 40 MG TAB PO SCH (08:57)
[2025-07-27] MEDS: Potassium Chloride 20 MEQ in Premix 1 BAG IVPB SCH (08:58)
[2025-07-27] MEDS: Potassium Bicarbonate/Cit Ac 20 MEQ TAB PO SCH (13:28)
[2025-07-27] MEDS ORDERED: Magnesium Sulfate In Water 4 GM in Premix 1 BAG IVPB PRN (16:00)
[2025-07-27] MEDS ORDERED: Potassium Chloride 20 MEQ in Premix 1 BAG IVPB PRN (16:00)
[2025-07-27 18:51] LABS: Potassium 3.6 mmol/L (3.5-5.1)
[2025-07-28 04:48] LABS: INR-International Normal Ratio 3.3; Prothrombin Time 33.4 sec (12.0-14.7)
[2025-07-28 04:49] LABS: PTT 57.1 sec (22.9-36.1)
[2025-07-28 04:50] LABS: ALT (SGPT) 81 U/L (Less than 45); AST (SGOT) 158 U/L (11-34); Albumin 2.5 g/dL (3.1-4.5); Alkaline Phosphatase 97 U/L (40-110); Anion Gap 10 mmol/L (10-20); BUN (Urea Nitrogen) 11 mg/dL (8.9-20.6); Bilirubin, Direct 13.6 mg/dL (0.1-0.3); Bilirubin, Total 22.7 mg/dL (0.3-1.2); Calc. Creatinine Clearance 245 mL/min (70-130); Calcium 8.0 mg/dL (7.8-10.44); Carbon Dioxide 24 mmol/L (22-29); Chloride 105 mmol/L (98-107); Glucose 83 mg/dL (70-105); Potassium 3.4 mmol/L (3.5-5.1); Sodium 136 mmol/L (136-145)
[2025-07-28] MEDS: PHOS-NAK 1 PKT PACK PO PRN (05:38)
[2025-07-28 09:54] LABS: Potassium 3.7 mmol/L (3.5-5.1)
[2025-07-28] MEDS: Potassium Bicarbonate/Cit Ac 20 MEQ TAB PO SCH (09:54)
[2025-07-29 04:18] LABS: #Basophils 0.03 10x3/uL (0.0-0.2); #Eosinophils 0.05 10x3/uL (0.0-0.7); #Monocytes 0.62 10x3/uL (0.11-0.59); #Neutrophils 5.85 10x3/uL (1.40-6.50); %Basophils 0.4 % (0.0-1.0); %Eosinophils 0.6 % (0.0-10.0); %Lymphocytes 14.5 % (21.0-51.0); %Monocytes 8.0 % (0.0-10.0); %Neutrophils 75.9 % (42.0-75.0); Hematocrit 29.3 % (42.0-52.0); Hemoglobin 10.3 g/dL (14.0-18.0); Mean Corpuscular Hemoglobin 36.5 pg (27.0-31.0); Mean Corpuscular Volume 103.9 fL (78.0-98.0); Platelet Count 40 10x3/uL (130-400); Red Blood Cell (RBC) Count 2.82 mill/uL (4.70-6.10); White Blood Cell (WBC) Count 7.72 10x3/uL (4.8-10.8)
[2025-07-29] MEDS: Guaifenesin DM 100-10/5 ML UDCUP PO PRN (04:23)
[2025-07-29 04:26] LABS: INR-International Normal Ratio 2.9; PTT 50.8 sec (22.9-36.1); Prothrombin Time 30.8 sec (12.0-14.7)
[2025-07-29 04:47] LABS: ALT (SGPT) 100 U/L (Less than 45); AST (SGOT) 199 U/L (11-34); Albumin 2.4 g/dL (3.1-4.5); Alkaline Phosphatase 109 U/L (40-110); Anion Gap 14 mmol/L (10-20); BUN (Urea Nitrogen) 9 mg/dL (8.9-20.6); Bilirubin, Direct 14.9 mg/dL (0.1-0.3); Bilirubin, Total 24.6 mg/dL (0.3-1.2); Calc. Creatinine Clearance 225 mL/min (70-130); Calcium 8.0 mg/dL (7.8-10.44); Carbon Dioxide 20 mmol/L (22-29); Chloride 105 mmol/L (98-107); Glucose 81 mg/dL (70-105); Potassium 3.7 mmol/L (3.5-5.1); Sodium 135 mmol/L (136-145)
[2025-07-30 05:07] LABS: #Basophils 0.03 10x3/uL (0.0-0.2); #Eosinophils 0.08 10x3/uL (0.0-0.7); #Monocytes 0.78 10x3/uL (0.11-0.59); #Neutrophils 5.19 10x3/uL (1.40-6.50); %Basophils 0.4 % (0.0-1.0); %Eosinophils 1.1 % (0.0-10.0); %Lymphocytes 14.7 % (21.0-51.0); %Monocytes 10.8 % (0.0-10.0); %Neutrophils 72.3 % (42.0-75.0); Hematocrit 29.3 % (42.0-52.0); Hemoglobin 10.5 g/dL (14.0-18.0); Mean Corpuscular Hemoglobin 37.0 pg (27.0-31.0); Mean Corpuscular Volume 103.2 fL (78.0-98.0); Platelet Count 41 10x3/uL (130-400); Red Blood Cell (RBC) Count 2.84 mill/uL (4.70-6.10); White Blood Cell (WBC) Count 7.19 10x3/uL (4.8-10.8)
[2025-07-30 05:15] LABS: Anion Gap 14 mmol/L (10-20); BUN (Urea Nitrogen) 8 mg/dL (8.9-20.6); Calc. Creatinine Clearance 235 mL/min (70-130); Calcium 7.7 mg/dL (7.8-10.44); Carbon Dioxide 20 mmol/L (22-29); Chloride 103 mmol/L (98-107); Glucose 90 mg/dL (70-105); Potassium 3.7 mmol/L (3.5-5.1); Sodium 133 mmol/L (136-145)
[2025-07-30 05:24] LABS: INR-International Normal Ratio 3.1; PTT 58.9 sec (22.9-36.1); Prothrombin Time 32.3 sec (12.0-14.7)
[2025-07-30] MEDS: Lactulose 20 GM (30 mL) UDCUP PO SCH (08:30)
[2025-07-30 17:18] VITALS: BP 108/66; TEMP 97.9
== END 2025-07-30 19:22 | disposition home or self-care (01) | DRG 871 ==
LOC: ERS 11:22 → IMCU/EMU 15:30 → 2SE 07-19 15:05 → PCU 07-19 21:45
PROVIDERS: ADMIT Family Medicine; ATTEND Hospitalist
PROC: 3E03329 Introduction of Other Anti-infective into Peripheral Vein, Percutaneous Approach (ICD-10-PCS; principal; 2025-07-18)
PROC: HZ2ZZZZ Detoxification Services for Substance Abuse Treatment (ICD-10-PCS; 2025-07-18)
PROC: 0W9G3ZZ Drainage of Peritoneal Cavity, Percutaneous Approach (ICD-10-PCS; 2025-07-18)
PROC: 6A550Z2 Pheresis of Platelets, Single (ICD-10-PCS; 2025-07-19)
PROC: 0T9B70Z Drainage of Bladder with Drainage Device, Via Natural or Artificial Opening (ICD-10-PCS; 2025-07-20)
PROC: 0DH67UZ Insertion of Feeding Device into Stomach, Via Natural or Artificial Opening (ICD-10-PCS; 2025-07-21)
PROC: 0W9G3ZZ Drainage of Peritoneal Cavity, Percutaneous Approach (ICD-10-PCS; 2025-07-25)
PROC: 30233J1 Transfusion of Nonautologous Serum Albumin into Peripheral Vein, Percutaneous Approach (ICD-10-PCS; 2025-07-26)
DX: A41.51 Sepsis due to Escherichia coli [E. coli] (principal); G93.41 Metabolic encephalopathy; K65.2 Spontaneous bacterial peritonitis; L03.115 Cellulitis of right lower limb; D61.818 Other pancytopenia; E87.1 Hypo-osmolality and hyponatremia; E87.20 Acidosis, unspecified; S36.119A Unspecified injury of liver, initial encounter; E87.0 Hyperosmolality and hypernatremia; D68.4 Acquired coagulation factor deficiency; K76.6 Portal hypertension; K70.31 Alcoholic cirrhosis of liver with ascites; R65.20 Severe sepsis without septic shock; I10 Essential (primary) hypertension; E11.9 Type 2 diabetes mellitus without complications; F10.10 Alcohol abuse, uncomplicated; E87.6 Hypokalemia; E83.39 Other disorders of phosphorus metabolism; E83.42 Hypomagnesemia; Z88.0 Allergy status to penicillin; K52.9 Noninfective gastroenteritis and colitis, unspecified; K76.82 Hepatic encephalopathy; K70.11 Alcoholic hepatitis with ascites; E80.6 Other disorders of bilirubin metabolism
CPT/HCPCS: 36415; 36416; 36430; 49083; 71045; 74177; 76705; 80048; 80053; 80076; 80143; 80202; 80306; 82042; 82140; 82150; 82248; 82436; 82945; 83605; 83615; 83690; 83735; 83880; 83930; 83935; 84100; 84133; 84157; 84300; 84443; 84484; 84560; 85025; 85060; 85610; 85730; 86850; 86900; 86901; 87015; 87040; 87077; 87149; 87186; 87206; 87324; 87428; 87449; 87505; 87798; 89051; 89060; 93005; 93976; 96365; 96366; 96367; 96368; 96375; 96376; 99292; 80307; J0692; J1630; J1940; J2060; J2405; J2470; J2543; J3010; J3373; J3375; J3411; J3430; J3475; J3480; J3490; J7030; J7050; P9035; P9047; Q9967